=== PATIENT | female | born 1965 | race Caucasian/White ===

== ENCOUNTER 2016-03-13 05:25 | Day surgery (SDC) | payer OTHER ==
--- NOTE | 2016-03-12 15:16 | HPN ---
Date/Time of Note Date/Time of Note DATE: 03/12/16 TIME: 15:16 Interval H&P Admission Note Pt. seen H&P reviewed: No system changes SHREYA NORTH MD Mar 12, 2016 15:16
--- NOTE | 2016-03-12 15:26 | HP ---
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 here for COLD CONIZATION of CERVIX and D and C ROS unremarkable Constitutional: improved, no complaints PMH/Family/Social Past Medical History Medical History: hypothyroid Past Surgical History Past Surgical Hx: other (subtotal hysterectomy) Family History Significant Family History: hypertension (mom and dad) Social History Alcohol Use: none Smoking Status: Current every day smoker Exam/Review of Systems Exam Constitutional: alert, oriented, well developed Psych: nl mood/affect, no complaints Head: atraumatic, normocephalic Eyes: EOMI, PERRL, nl conjunctiva, nl lids, nl sclera ENMT: nl external ears & nose, nl lips & teeth, nl nasal mucosa & septum Neck: non-tender, supple Respiratory: clear to auscultation, normal air movement Cardiovascular: nl pulses, regular rate and rhythm Gastrointestinal: nl liver, spleen, non-tender, soft Musculoskeletal: nl extremities to inspection Extremities: normal pulses Neurological: PROCESS CONTROL TECHNICIAN II-XII intact, nl mental status, nl speech, nl strength Skin: nl turgor, No rash or lesions Lymph: nl lymph nodes SHREYA NORTH MD Mar 12, 2016 15:26
[~2016-03-13] VITALS: Ht 162.6 cm; Wt 69.8 kg
[2016-03-13] VITALS (8 sets, daily range): BP systolic 109–158; BP diastolic 65–85; PULSE 78–86; RESP 11–18; Ht 162.6 cm; Wt 69.8 kg
[2016-03-13] MEDS ORDERED: ASC500 PO (06:33)
[2016-03-13] MEDS ORDERED: [UNRECOGNIZED DRUG - CODE] PO (06:33)
[2016-03-13] MEDS ORDERED: ATEN-51 PO (06:33)
[2016-03-13] MEDS ORDERED: LEVO75TA5 PO (06:33)
[2016-03-13] MEDS ORDERED: ASPI-664 PO (06:33)
[2016-03-13] MEDS ORDERED: CHOL500010 PO (06:33)
[2016-03-13] MEDS ORDERED: STRONG IODINE 14 ML SOLUTION TOP ONE (06:54)
[2016-03-13] MEDS ORDERED: CEFAZOLIN 1 GM INJ ONE (07:00)
[2016-03-13] MEDS ORDERED: hydrALAzine 20 MG INJ ONE (07:00)
[2016-03-13] MEDS ORDERED: hydrALAzine 20 MG INJ IV PRN (07:30)
[2016-03-13] MEDS ORDERED: MIDAZOLAM 1 MG/ML 2 ML INJ IV PRN (07:30)
[2016-03-13] MEDS ORDERED: HYDROmorphONE (0.2 MG/ML) 10ML SYG IV PRN ×3 (07:30)
[2016-03-13] MEDS ORDERED: KETOROLAC 30 MG INJ IV ONE (07:30)
[2016-03-13] MEDS ORDERED: MEPERIDINE 25 MG INJ IV PRN (07:30)
[2016-03-13] MEDS ORDERED: DIPHENHYDRAMINE 50 MG INJ IV PRN (07:30)
[2016-03-13] MEDS ORDERED: ONDANSETRON 4 MG INJ IV PRN (07:30)
[2016-03-13] MEDS ORDERED: EPHEDrine SULFATE 50 MG/5 ML SYG IV PRN (07:30)
[2016-03-13] MEDS ORDERED: FENTAnyl 50 MCG/ML VIAL ONE (07:52)
[2016-03-13] MEDS ORDERED: PROPOFOL 20 ML ONE (07:52)
[2016-03-13] MEDS ORDERED: MIDAZOLAM 1 MG/ML 2 ML INJ ONE (07:53)
[2016-03-13] MEDS ORDERED: ONDANSETRON 4 MG INJ ONE (07:53)
[2016-03-13] MEDS ORDERED: DEXAMETHASONE 4 MG/ML 1 ML INJ ONE (07:53)
--- NOTE | 2016-03-13 08:56 | PD.PPDC ---
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
[2016-03-13] MEDS ORDERED: CEFAZOLIN 1 GM/50 ML (PMX) 50 ML IVPB SCH (10:00)
[2016-03-13] MEDS ORDERED: LACTATED RINGER'S 1,000 ML IV* SCH (10:00)
--- NOTE | 2016-03-13 11:12 | OPR ---
DATE OF OPERATION: 03/13/2016 PREOPERATIVE DIAGNOSES: Status post subtotal hysterectomy and high grade squamous intraepithelial l esion of the cervix. POSTOPERATIVE DIAGNOSIS: See pathological report. OPERATION PERFORMED: Cold conization of the cervix and endocervical curettage. ANESTHESIA: General. ANESTHESIOLOGIST: Dr. Ortiz. SURGEON: Kemi Alejo MD SPONGE COUNT: Correct. ESTIMATED BLOOD LOSS: Less than 10 mL. PROCEDURE: Under appropriate induction of general anesthesia, the patient was placed in the dorsal lithotomy position. Perineal area and vagina wall was prepped and draped in usual aseptic manner. Weighted speculum was introduced into the vagina. Cervix was identified, and there was a small cyst ic lesion at 5 o'clock which appeared to be nabothian cyst. Anterior lip of the cervix was grasped with a single tooth tenaculum. Lugol solution was applied and there was Schiller test positive area on the upper lip close to the 1 o'clock. Hemostatic ligature was placed on at 3 and 9 o'noe ck direction of the cervix using 0 chromic catgut and suture was left long for traction also. Then, a circular incision was made on the cervix, starting from the lower lip, counter clockwise and this cervical cone was removed from the cervix en bloc. Then, endocervical curettage was performed with obtaining almost no tissue and then sutured using chromic catgut starting from the lower lip b y using Sturmdorf suture on upper lip and lower lip, thus inverting the edge of the cervix into the defect area. A piece of Surgicel was inserted in the defect. The defect was covered with the cervi birgit mucosa. A piece of Surgicel was inserted for hemostatic purposes. No bleeder was noted. All t he sutures were cut from the field and instruments removed from the field. The patient withstood pr ocedure well and was sent to the recovery room in stable condition. Dictated By: KEMI GREEN/BRENDA Conf#: [id number] DID#: [id number]
== END 2016-03-13 10:27 | disposition home or self-care (01) ==
LOC: SDS 05:25
PROVIDERS: ATTEND Obstetrics & Gynecology
DX: D06.9 Carcinoma in situ of cervix, unspecified (principal); Z90.710 Acquired absence of both cervix and uterus; F17.210 Nicotine dependence, cigarettes, uncomplicated
CPT/HCPCS: 57520; 82962; 84703; 88305; J0360; J0690; J1100; J2250; J2405; J3010; Z7512; Z7610

== ENCOUNTER 2016-10-13 05:59 | Day surgery (SDC) | payer OTHER ==
[2016-10-12 12:35] VITALS: BMI 27.5
[2016-10-13] VITALS (14 sets, daily range): BP systolic 150–166; BP diastolic 79–95; PULSE 90–118; RESP 12–20; Ht 162.6 cm; Wt 69.0 kg
[~2016-10-13] VITALS: Ht 162.6 cm; Wt 69.0 kg
[~2016-10-13 05:59] MED LIST: ASC500 PO; ASPI-664 PO; ATEN-51 PO; CHOL500010 PO; LEVO75TA5 PO; [UNRECOGNIZED DRUG - CODE] PO
[2016-10-13] MEDS ORDERED: CEFAZOLIN 2 GM/50 ML (PMX) 50 ML IVPB SCH (06:00)
[2016-10-13] MEDS ORDERED: LACTATED RINGER'S 1,000 ML IV* SCH (06:00)
[2016-10-13] MEDS ORDERED: CYAN500T46 PO (07:13)
--- NOTE | 2016-10-13 08:07 | HPN ---
Date/Time of Note Date/Time of Note DATE: 10/13/16 TIME: 08:07 Interval H&P Admission Note Pt. seen H&P reviewed: No system changes SHREYA NORTH MD Oct 13, 2016 08:07
[2016-10-13] MEDS ORDERED: ROCURONIUM 50 MG INJ ONE (08:09)
[2016-10-13] MEDS ORDERED: MIDAZOLAM 1 MG/ML 2 ML INJ ONE (08:09)
[2016-10-13] MEDS ORDERED: PROPOFOL 20 ML ONE (08:09)
[2016-10-13] MEDS ORDERED: LIDOCAINE 1% (MDV) 20 ML INJ ONE (08:10)
[2016-10-13] MEDS ORDERED: CEFAZOLIN 1 GM INJ ONE (08:27)
[2016-10-13] MEDS ORDERED: FAMOTIDINE 20 MG INJ ONE (08:27)
[2016-10-13] MEDS ORDERED: DEXAMETHASONE 4 MG/ML 1 ML INJ ONE (08:27)
[2016-10-13] MEDS ORDERED: ONDANSETRON 4 MG INJ ONE ×2 (08:27→10:42)
[2016-10-13] MEDS ORDERED: PHENYLephrine (100 MCG/ML) 5ML SYG ONE (09:02)
[2016-10-13] MEDS ORDERED: SUGAMMADEX SODIUM 200 MG/2 ML VIAL IV ONE (10:26)
--- NOTE | 2016-10-13 10:36 | SIPON ---
Date/Time of Note Date/Time of Note DATE: 10/13/16 TIME: 10:33 Operative Report Free Text/Dictation s/p subtotal hysterectomy ca in situ Preoperative Diagnosis of cervix carcinoma in situ Postoperative Diagnosis see pathology report Operation/Procedure Performed trachelectomy Surgeon: SHREYA NORTH MD Anesthesia Type: general Estimated Blood Loss: 10 - 50 ml's Transfusion Required: no Specimens cervix Grafts/Implants: none Grafts/Implants none SHREYA NORTH MD Oct 13, 2016 10:36
--- NOTE | 2016-10-13 10:38 | PD.PPDC ---
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
[2016-10-13] MEDS ORDERED: HYDROmorphONE (0.2 MG/ML) 10ML SYG IV PRN (11:00)
[2016-10-13] MEDS ORDERED: LABETALOL HCL 20MG INJ IV PRN (11:00)
[2016-10-13] MEDS ORDERED: hydrALAzine 20 MG INJ IV PRN (11:00)
[2016-10-13] MEDS ORDERED: MEPERIDINE 25 MG INJ IV PRN (11:00)
[2016-10-13] MEDS ORDERED: DIPHENHYDRAMINE 50 MG INJ IV PRN (11:00)
[2016-10-13] MEDS ORDERED: LORAZEPAM 2 MG INJ IV PRN (11:00)
[2016-10-13] MEDS: ONDANSETRON 4 MG INJ IV PRN ×2 (11:03→11:37)
[2016-10-13] MEDS: HYDROmorphONE (0.2 MG/ML) 10ML SYG IV PRN ×3 (11:08→12:56)
--- NOTE | 2016-10-16 04:46 | OPR ---
DATE OF OPERATION: 10/13/2016 PREOPERATIVE DIAGNOSIS: Carcinoma in situ of the cervix. POSTOPERATIVE DIAGNOSIS: See pathological report. OPERATION PERFORMED: Trachelectomy. ANESTHESIA: General. ANESTHESIOLOGIST: Dr. Suarez. SURGEON: Guadalupe Alejo MD MANAGER FLIGHT OPERATIONS: No co-surgeon. ESTIMATED BLOOD LOSS: 50 mL. OPERATIVE PROCEDURE: Under appropriate induction of general anesthesia, the patient was placed in dorsal lithotomy position. Perineal area and vagina area was prepped and draped in usual aseptic manner. A weighted speculum introduced. Anterior cervix was grasped with a single-tooth tenaculum. This was replaced by 4-prong tenaculum. A circular incision was made along the cervix at the cervical vaginal fold and the anterior vaginal mucosa was undermined and posterior also vaginal mucosa was from the underlying tissue and the posterior peritoneum reflection was identified which was entered. Then a Vy retractor was placed in the pelvic cavity. Both the right uterosacral ligament was clamped and cut, ligated with number 1 chromic catgut and the left uterosacral ligament was clamped and cut, transfixed with number 1 chromic catgut. Anteriorly, further dissection of the anterior vaginal mucosa was performed and the bladder was pushed away. A low portion of cardinal ligament was clamped, cut, and ligated, and on each side in several bites reached the top of the cervix and transversely clamped with a Vy clamp, and the entire cervix was removed from the operative field. Then the pedicle was transfixed with a number 1 chromic catgut. The vaginal vault was held with an Allis clamp and this was transversely closed with a number 1 chromic catgut in continuous manner. Blood loss approximately 50 mL, but due to the poor exposure of the operative field, duration of surgery was longer than usual for the same procedure. Irrigation was done and procedure was completed. The patient was sent to the recovery room in stable condition. Dictated By: Guadalupe Alejo MD /chris/armin /Document#: [id number]
== END 2016-10-13 15:55 | disposition home or self-care (01) ==
LOC: SDS 05:59
PROVIDERS: ATTEND Obstetrics & Gynecology
DX: N72 Inflammatory disease of cervix uteri (principal); Z85.41 Personal history of malignant neoplasm of cervix uteri; I10 Essential (primary) hypertension; E03.9 Hypothyroidism, unspecified
CPT/HCPCS: 57530; 86850; 86900; 86901; 86920; 88305; J0690; J1100; J1170; J2175; J2250; J2370; J2405; J3010; Z7512; Z7610